=== PATIENT | male | born 1990 | race Two or more races ===

== ENCOUNTER 2017-06-26 12:52 | Inpatient (IN) | payer OTHER ==
[2017-06-26] MEDS ORDERED: SODIUM CHLORIDE 0.9% 1,000 ML IV ONE ×2 (13:53→15:54)
--- NOTE | 2017-06-26 13:56 | ED ---
Dizziness HPI - General Chief Complaint: Syncope Stated Complaint: Syncope Time Seen by Provider: 06/26/17 13:37 Source: patient, RN notes reviewed, old records reviewed Mode of arrival: ambulatory Limitations: no limitations - History of Present Illness Initial Comments: This patient is a 27-year-old female presents emergency department today chief complaint of syncopal episode. Patient reports that he is currently at [facility] facility. He was sitting on the edge of his bed and went to stand up and passed out follow-up. Patient reports that he quickly aroused. He denies any significant head injury, patient denies any chest pain, abdominal pain. He reports that he feels fine at this time. He states that happen to him in the past raise had a syncopal episodes from changing positions. Patient reports that he is currently withdrawing from benzodiazepines. He has been in the rehab facility for proximally 6 days. Patient is a smoker. Denies any cardiac history or medical history. Patient is in [facility] for history of crystal meth abuse, benzodiazepine abuse, heroin abuse, cocaine abuse. - Related Data Allergies Allergy/AdvReac Type Severity Reaction Status Date / Time codeine Allergy Rash/Hives Verified 06/26/17 13:33 Review of Systems ROS Statement: Those systems with pertinent positive or pertinent negative responses have been documented in the HPI. ROS Other: All systems not noted in ROS Statement are negative. Past Medical History Past Medical History: No Reported History History of Any Multi-Drug Resistant Organisms: None Reported Past Surgical History: No Surgical Hx Reported Past Psychological History: ADD/ADHD, Anxiety, Depression Smoking Status: Current every day smoker Past Alcohol Use History: None Reported Past Drug Use History: None Reported, Prescription Drug Abuse General Exam - General Exam Comments Initial Comments: This patient is a 27-year-old male. No acute distress. Alert and oriented 4. Limitations: no limitations General appearance: alert, in no apparent distress Head exam: Present: atraumatic, normocephalic, normal inspection Eye exam: Present: normal appearance, PERRL, EOMI. Absent: scleral icterus, conjunctival injection, periorbital swelling ENT exam: Present: normal exam, mucous membranes moist Neck exam: Present: normal inspection. Absent: tenderness, meningismus, lymphadenopathy Respiratory exam: Present: normal lung sounds bilaterally. Absent: respiratory distress, wheezes, rales, rhonchi, stridor Cardiovascular Exam: Present: regular rate, normal rhythm, normal heart sounds. Absent: systolic murmur, diastolic murmur, rubs, gallop, clicks GI/Abdominal exam: Present: soft, normal bowel sounds. Absent: distended, tenderness, guarding, rebound, rigid Extremities exam: Present: normal inspection, full ROM, normal capillary refill. Absent: tenderness, pedal edema, joint swelling, calf tenderness Back exam: Present: normal inspection Neurological exam: Present: alert, oriented X3, CN II-XII intact Psychiatric exam: Present: normal affect, normal mood Skin exam: Present: warm, dry, intact, normal color. Absent: rash Course Vital Signs 06/26/17 06/26/17 06/26/17 13:30 13:58 14:00 Temperature 97 F L Pulse Rate 67 Pulse Rate [ 69 Left Sitting Demolition Worker ] Pulse Rate [ Left Standing] Pulse Rate [ 67 69 Supine Demolition Worker] Respiratory 16 18 20 Rate Blood Pressure 142/73 Blood Pressure 127/60 123/61 [Left Arm] O2 Sat by Pulse 96 98 98 Oximetry 06/26/17 14:02 Temperature Pulse Rate Pulse Rate [ Left Sitting Demolition Worker ] Pulse Rate [ 77 Left Standing] Pulse Rate [ Supine Demolition Worker] Respiratory 20 Rate Blood Pressure Blood Pressure 120/65 [Left Arm] O2 Sat by Pulse 98 Oximetry - Reevaluation(s) Reevaluation #1: 06/26/17 16:16 Patient is a very anxious about his diagnosis. He is currently receiving a echocardiogram. Dr. Johnston will be coming down to see the patient in the emergency department. Medical Decision Making - Medical Decision Making Patient is a 27-year-old male presents emergency department for syncopal episode when getting up from sitting to standing today. He is currently at [facility] facility undergoing withdrawal for benzodiazepine, heroin, cocaine, crystal meth. Patient reports that after single episode he has no chest pain shortness of breath. Denies any significant medical history. He is a smoker. Initially patient was reluctant having any testing. I discussed doing an EKG. EKG did show some abnormalities with spiked T waves. He had a normal potassium. However was determined patient had an elevated troponin of 0.100. He denies any significant chest pain. He does report he has had severe anxiety now due to the elevated troponin is findings. I discussed with the patient that he needs to be admitted for further evaluation. Patient initially was reluctant but does agree to admission. I will give the patient Ativan. At this time I discussed case with Dr. Christopher Beaver. He stated to hold off with heparin at this time as patient does not have any chest pain. This could be all related to his withdrawal and drug use. Patient will be admitted with cardiology consult and Echo ordered. Also per patient's [facility] chart he has a history of hep C. There also has 2 open areas on his groin 1-2 cm each, and patient is on Bactrim. - Lab Data Result diagrams: 06/26/17 14:05 06/26/17 14:05 Lab Results 06/26/17 06/26/17 06/26/17 Range/Units 14: 14:05 14:05 WBC 8.2 (3.8-10.6) k/uL RBC 4.69 (4.30-5.90) m/uL Hgb 13.8 (13.0-17.5) gm/dL Hct 44.9 (39.0-53.0) % MCV 95.7 (80.0-100.0) fL MCH 29.4 (25.0-35.0) pg MCHC 30.7 L (31.0-37.0) g/dL RDW 13.5 (11.5-15.5) % Plt Count 212 (150-450) k/uL Neutrophils % 68 % Lymphocytes % 21 % Monocytes % 7 % Eosinophils % 2 % Basophils % 1 % Neutrophils # 5.6 (1.3-7.7) k/uL Lymphocytes # 1.7 (1.0-4.8) k/uL Monocytes # 0.6 (0-1.0) k/uL Eosinophils # 0.2 (0-0.7) k/uL Basophils # 0.0 (0-0.2) k/uL Sodium 139 (137-145) mmol/L Potassium 4.8 (3.5-5.1) mmol/L Chloride 100 (98-107) mmol/L Carbon Dioxide 31 H (22-30) mmol/L Anion Gap 8 mmol/L BUN 17 (9-20) mg/dL Creatinine 1.00 (0.66-1.25) mg/dL Est GFR (MDRD) Af Amer >60 (>60 ml/min/1.73 sqM) Est GFR (MDRD) Non-Af >60 (>60 ml/min/1.73 sqM) Glucose 79 (74-99) mg/dL Calcium 9.5 (8.4-10.2) mg/dL Magnesium (1.6-2.3) mg/dL Total Bilirubin 0.2 (0.2-1.3) mg/dL AST 42 (17-59) U/L ALT 69 (21-72) U/L Alkaline Phosphatase 62 (38-126) U/L Total Creatine Kinase (55-170) U/L CK-MB (CK-2) (0.0-2.4) ng/mL CK-MB (CK-2) Rel Index Troponin I 0.100 H* (0.000-0.034) ng/mL Total Protein 6.9 (6.3-8.2) g/dL Albumin 4.1 (3.5-5.0) g/dL 06/26/17 06/26/17 Range/Units 15:29 15:29 WBC (3.8-10.6) k/uL RBC (4.30-5.90) m/uL Hgb (13.0-17.5) gm/dL Hct (39.0-53.0) % MCV (80.0-100.0) fL MCH (25.0-35.0) pg MCHC (31.0-37.0) g/dL RDW (11.5-15.5) % Plt Count (150-450) k/uL Neutrophils % % Lymphocytes % % Monocytes % % Eosinophils % % Basophils % % Neutrophils # (1.3-7.7) k/uL Lymphocytes # (1.0-4.8) k/uL Monocytes # (0-1.0) k/uL Eosinophils # (0-0.7) k/uL Basophils # (0-0.2) k/uL Sodium (137-145) mmol/L Potassium (3.5-5.1) mmol/L Chloride (98-107) mmol/L Carbon Dioxide (22-30) mmol/L Anion Gap mmol/L BUN (9-20) mg/dL Creatinine (0.66-1.25) mg/dL Est GFR (MDRD) Af Amer (>60 ml/min/1.73 sqM) Est GFR (MDRD) Non-Af (>60 ml/min/1.73 sqM) Glucose (74-99) mg/dL Calcium (8.4-10.2) mg/dL Magnesium 1.9 (1.6-2.3) mg/dL Total Bilirubin (0.2-1.3) mg/dL AST (17-59) U/L ALT (21-72) U/L Alkaline Phosphatase (38-126) U/L Total Creatine Kinase 57 (55-170) U/L CK-MB (CK-2) 1.6 (0.0-2.4) ng/mL CK-MB (CK-2) Rel Index 2.8 Troponin I (0.000-0.034) ng/mL Total Protein (6.3-8.2) g/dL Albumin (3.5-5.0) g/dL 06/26/17 14:13 EKG performed at 1404 shows sinus rhythm normally QT noted. Ventricular 69 bpm. 82 ms. QRS ration 90 ms. QT QTc is 392/420 ms. No evidence of ST elevation or T-wave inversion. - Radiology Data Radiology results: report reviewed Correlating for bronchitis reactive airway disease. Follow-up is indicated. Disposition Clinical Impression: Elevated troponin, Syncope, Drug abuse Disposition: ADMITTED IP TO THIS [facility] Condition: Stable Referrals: Nonstaff,Physician [Primary Care Provider] - 1-2 days Time of Disposition: 15:28
[2017-06-26 14:32] LABS: Basophils % (A) 1 %; Eosinophils # (A) 0.2 k/uL (0-0.7); Eosinophils % (A) 2 %; HCT 44.9 % (39.0-53.0); HGB 13.8 gm/dL (13.0-17.5); Lymphocytes # (A) 1.7 k/uL (1.0-4.8); Lymphocytes % (A) 21 %; MCH 29.4 pg (25.0-35.0); MCHC 30.7 g/dL (31.0-37.0); MCV 95.7 fL (80.0-100.0); Mean Platelet Volume 7.6; Monocytes # (A) 0.6 k/uL (0-1.0); Monocytes % (A) 7 %; Neutrophils # (A) 5.6 k/uL (1.3-7.7); Neutrophils % (A) 68 %; Platelet Count 212 k/uL (150-450); RBC 4.69 m/uL (4.30-5.90); RDW 13.5 % (11.5-15.5); WBC 8.2 k/uL (3.8-10.6)
[2017-06-26 14:45] LABS: ALT 69 U/L (21-72); AST 42 U/L (17-59); Albumin 4.1 g/dL (3.5-5.0); Alkaline Phosphatase 62 U/L (38-126); Anion Gap 8 mmol/L; Blood Urea Nitrogen 17 mg/dL (9-20); Calcium 9.5 mg/dL (8.4-10.2); Carbon Dioxide 31 mmol/L (22-30); Chloride 100 mmol/L (98-107); Glucose 79 mg/dL (74-99); Potassium 4.8 mmol/L (3.5-5.1); Sodium 139 mmol/L (137-145); Total Bilirubin 0.2 mg/dL (0.2-1.3); Total Protein 6.9 g/dL (6.3-8.2)
[2017-06-26] MEDS ORDERED: LORazepam 2 MG/ML INJ IV STA (15:22)
[2017-06-26] MEDS ORDERED: NICOTINE 21MG/24HR PATCH TRANSDERM STA (15:23)
[2017-06-26] MEDS ORDERED: SODIUM CHLORIDE 0.45% 1,000 ML IV SCH (15:30)
--- NOTE | 2017-06-26 15:33 | XR ---
EXAMINATION TYPE: XR chest 2V DATE OF EXAM: 06/26/2017 COMPARISON: NONE HISTORY: Cough and congestion TECHNIQUE: Frontal and lateral views of the chest are obtained. FINDINGS: There is no focal air space opacity, pleural effusion, or pneumothorax seen. The cardiac silhouette size is within normal limits. The osseous structures are intact. Bronchial wall thickeni ng is present. IMPRESSION: Correlate for bronchitis, reactive airways disease, follow-up as indicated.
[2017-06-26] MEDS ORDERED: NITROGLYCERIN SL TABS 0.4 MG TAB SUBLINGUAL PRN (15:50)
[2017-06-26 15:53] LABS: Creatine Kinase MB 1.6 ng/mL (0.0-2.4)
[2017-06-26 16:58] LABS: INR 1.1 (<1.2); Partial Thromboplastin Time 24.1 sec (22.0-30.0); Prothrombin Time 10.5 sec (9.0-12.0)
[2017-06-26] MEDS: SODIUM CHLORIDE 0.9% 1,000 ML IV SCH (17:01)
[2017-06-26] MEDS: buPROPion SR 150 MG TABLET.ER PO SCH (20:39)
[2017-06-26] MEDS: cloNIDine HCL 0.1 MG TAB PO SCH (20:39)
[2017-06-26 21:07] LABS: Creatine Kinase MB 1.5 ng/mL (0.0-2.4)
[2017-06-26 21:20] LABS: Troponin I 0.116 ng/mL (0.000-0.034)
[2017-06-26 23:40] LABS: Appearance,Urine Clear (Clear); Bilirubin,Urine Negative (Negative); Blood,Urine Negative (Negative); Color,Urine Light Yellow; Glucose,Urine (UA) Negative (Negative); Ketones,Urine Negative (Negative); Leukocyte Esterase,Urine Negative (Negative); Nitrite,Urine Negative (Negative); Protein,Urine Negative (Negative); Urobilinogen,Urine <2.0 mg/dL (<2.0)
[2017-06-27 02:41] LABS: Cholesterol 155 mg/dL (<200); HDL Cholesterol 53 mg/dL (40-60); LDL Cholesterol,Calculated 66 mg/dL (0-99); Triglycerides 182 mg/dL (<150)
[2017-06-27 02:59] LABS: Creatine Kinase MB 1.3 ng/mL (0.0-2.4)
[2017-06-27 03:09] LABS: Troponin I 0.12 ng/mL (0.000-0.034)
[2017-06-27] MEDS: buPROPion SR 150 MG TABLET.ER PO SCH ×2 (06:40→20:01)
[2017-06-27] MEDS: NICOTINE 21MG/24HR PATCH TRANSDERM SCH (06:40)
[2017-06-27] MEDS: CITALOPRAM HYDROBROMIDE 20 MG TAB PO SCH (06:40)
[2017-06-27] MEDS: cloNIDine HCL 0.1 MG TAB PO SCH ×3 (06:40→20:01)
[2017-06-27] MEDS: SODIUM CHLORIDE 0.9% 1,000 ML IV SCH ×2 (06:54→11:50)
[2017-06-27] MEDS: ASPIRIN 325 MG TAB PO SCH (08:56)
--- NOTE | 2017-06-27 09:58 | P.CRDCN ---
History of Present Illness Consult date: 06/27/17 Requesting physician: Grabiel Johnston Consult reason: sycope, chest pain Chief complaint: Syncope and chest pain History of present illness: This is a pleasant 27-year-old gentleman with history of nicotine dependence, drug abuse, who is currently residing at [facility] for rehab. Patient states he's been using cocaine, methamphetamine. According to the patient, he had been lying down in bed, got up suddenly and the next thing he recalls is passing out onto the floor. He states that he noticed everything going black prior to passing out. He also states that he experienced a brief chest discomfort just prior to this. At the time of wakening he was alert and oriented 3, he did not lose control of bowel or bladder function. Patient is currently on Bactrim at home for an abscess, he's been taking this for the past 4-5 days. EKG performed on arrival here showed a normal sinus rhythm with peaked T waves. Subsequent EKG performed this morning shows normal sinus rhythm with peaked T waves. Chest x-ray suggests correlation for bronchitis, reactive airway disease. Blood pressure this morning 142/70, heart rate in the 60s, 96% on room air. CBC normal. Sodium 139, potassium 4.8, BUN 17, creatinine 1.0. Troponin 0.10, 0.11, 0.12. At the time of my examination this morning, he is currently chest pain-free. Just complaints of feeling extremely tired. Past Medical History Past Medical History: No Reported History Additional Past Medical History / Comment(s): hep c(no tx yet), add, 2 open areas/groin on abx History of Any Multi-Drug Resistant Organisms: None Reported Past Surgical History: No Surgical Hx Reported Additional Past Surgical History / Comment(s): pt stated no sx Past Anesthesia/Blood Transfusion Reactions: No Reported Reaction Smoking Status: Current every day smoker - Past Family History Father Family Medical History: No Reported History Mother Additional Family Medical History / Comment(s): from brain anuerysm Medications and Allergies Home Medications Medication Instructions Recorded Confirmed Type Buprenorphine HCl/Naloxone HCl 1 tab SL BID 06/26/17 06/26/17 History [Zubsolv 5.7-1.4 mg Tablet Sl] Citalopram Hydrobromide [CeleXA] 40 mg PO DAILY 06/26/17 06/26/17 History Nicotine 21Mg/24Hr Patch [Habitrol 1 patch TRANSDERM DAILY 06/26/17 06/26/17 History 21Mg/24Hr Patch] Sulfamethox-Tmp 800-160Mg [Bactrim 1 tab PO Q12HR 06/26/17 06/26/17 History DS 800-160 mg] buPROPion HCL [Wellbutrin SR] 150 mg PO BID 06/26/17 06/26/17 History Allergies Allergy/AdvReac Type Severity Reaction Status Date / Time codeine Allergy Rash/Hives Verified 06/26/17 16:48 Physical Exam Vitals: Vital Signs Temp Pulse Pulse Pulse Pulse Pulse Resp 06/27/17 08:00 96.9 F L 59 L 06/27/17 04:00 97.2 F L 65 18 06/27/17 00:00 71 18 06/26/17 20:00 97.3 F L 72 18 06/26/17 17:03 96.1 F L 80 18 06/26/17 16:53 97.0 F L 71 16 06/26/17 16:00 80 16 06/26/17 14:02 77 20 06/26/17 14:00 69 69 20 06/26/17 13:58 67 18 06/26/17 13:30 97 F L 67 16 BP BP Pulse Ox 06/27/17 08:00 96/50 97 06/27/17 04:00 111/57 97 06/27/17 00:00 110/55 97 06/26/17 20:00 120/72 98 06/26/17 17:03 118/58 06/26/17 16:53 124/71 100 06/26/17 16:00 118/69 99 06/26/17 14:02 120/65 98 06/26/17 14:00 123/61 98 06/26/17 13:58 127/60 98 06/26/17 13:30 142/73 96 Intake and Output 06/26/17 06/27/17 06/27/17 22:59 06:59 14:59 Intake Total 800 Balance 800 Intake: Oral 800 Other: # Voids 2 Weight 95.8 kg PHYSICAL EXAMINATION: HEENT: Head is atraumatic, normocephalic. Pupils equal, round. Neck is supple. There is no elevated jugular venous pressure. HEART EXAMINATION: Heart S1, S2 normal. No murmur or gallop heard. CHEST EXAMINATION: Lungs are clear to auscultation and precussion. No chest wall tenderness is noted on palpation or with deep breathing. ABDOMEN: Soft, nontender. Bowel sounds are heard. No organomegaly noted. EXTREMITIES: 2+ peripheral pulses with no evidence of peripheral edema and no calf tenderness noted. NEUROLOGIC patient is awake, alert and oriented -3. . Results 06/26/17 14:05 06/26/17 14:05 Cardiac Enzymes 06/26/17 06/26/17 06/26/17 Range/Units 14:05 14:05 15:29 AST 42 (17-59) U/L CK-MB (CK-2) 1.6 (0.0-2.4) ng/mL Troponin I 0.100 H* (0.000-0.034) ng/mL 06/26/17 06/27/17 Range/Units 20:28 02:07 AST (17-59) U/L CK-MB (CK-2) 1.5 1.3 (0.0-2.4) ng/mL Troponin I 0.116 H* 0.120 H* (0.000-0.034) ng/mL Coagulation 06/26/17 Range/Units 16:25 PT 10.5 (9.0-12.0) sec APTT 24.1 (22.0-30.0) sec Lipids 06/27/17 Range/Units 02:07 Triglycerides 182 H (<150) mg/dL Cholesterol 155 (<200) mg/dL HDL Cholesterol 53 (40-60) mg/dL CBC 06/26/17 Range/Units 14:05 WBC 8.2 (3.8-10.6) k/uL RBC 4.69 (4.30-5.90) m/uL Hgb 13.8 (13.0-17.5) gm/dL Hct 44.9 (39.0-53.0) % Plt Count 212 (150-450) k/uL Comprehensive Metabolic Panel 06/26/17 Range/Units 14:05 Sodium 139 (137-145) mmol/L Potassium 4.8 (3.5-5.1) mmol/L Chloride 100 (98-107) mmol/L Carbon Dioxide 31 H (22-30) mmol/L BUN 17 (9-20) mg/dL Creatinine 1.00 (0.66-1.25) mg/dL Glucose 79 (74-99) mg/dL Calcium 9.5 (8.4-10.2) mg/dL AST 42 (17-59) U/L ALT 69 (21-72) U/L Alkaline Phosphatase 62 (38-126) U/L Total Protein 6.9 (6.3-8.2) g/dL Albumin 4.1 (3.5-5.0) g/dL Current Medications Generic Name Dose Route Start Last Admin Trade Name Freq PRN Reason Stop Dose Admin Aspirin 325 mg 06/27/17 09:00 06/27/17 08:56 Aspirin PO 325 mg DAILY JARET Administration Bupropion HCl 150 mg 06/26/17 21:00 06/27/17 06:40 Wellbutrin Sr PO 150 mg BID JARET Administration Citalopram Hydrobromide 40 mg 06/27/17 09:00 06/27/17 06:40 Celexa PO 40 mg DAILY JARET Administration Clonidine 0.3 mg 06/26/17 22:00 06/27/17 06:40 Catapres PO 0.3 mg TID JARET Administration Sodium Chloride 1,000 mls @ 100 mls/hr 06/26/17 16:00 06/27/17 06:54 Saline 0.9% IV Not Given .Q10H [facility] Nicotine 1 patch 06/27/17 09:00 06/27/17 06:40 Habitrol 21mg/24hr Patch TRANSDERM 1 patch DAILY JARET Administration Nitroglycerin 0.4 mg 06/26/17 15:50 Nitrostat SUBLINGUAL Q5M PRN Chest Pain Intake and Output 06/26/17 06/27/17 06/27/17 22:59 06:59 14:59 Intake Total 800 Balance 800 Intake: Oral 800 Other: # Voids 2 Weight 95.8 kg 06/26/17 14:05 06/26/17 14:05 EKG Interpretations (text) EKG shows a normal sinus rhythm with peaked T waves Assessment and Plan Plan: Assessment and plan #1 syncope, rule out cardiac causes. EKG shows normal sinus rhythm with peaked T waves. Blood pressure 118/60, heart rate in the 80s. No tachycardia or bradycardia arrhythmias noted. #2 atypical chest pain, troponins 0.1, 0.11, 0.12. EKG shows normal sinus rhythm with peaked T waves, no acute changes noted. #3 positive cocaine and methamphetamine use currently in rehab #4 patient is on Bactrim as an outpatient for an access, he's been taking it for 4-5 days #5 nicotine dependence Plan We will obtain an echocardiogram with Doppler study. We will also request a d- dimer, being that the patient's troponins are abnormal and he had a syncopal episode. Rule out the possibility of pulmonary embolism. Check orthostatic blood pressure and heart rate. We will also schedule patient for regular stress test today. Further recommendations to follow. DNP note has been reviewed, I agree with a documented findings and plan of care. Patient was seen and examined.
--- NOTE | 2017-06-27 11:27 | ECHOF ---
Referral Reason:Elevated troponin MEASUREMENTS -------- HEIGHT: 180.3 cm WEIGHT: 91.2 kg BP: 120/65 RVIDd: 2.9 cm (< 3.3) IVSd: 1.3 cm (0.6 - 1.1) LVIDd: 4.9 cm (3.9 - 5.3) LVPWd: 1.3 cm (0.6 - 1.1) IVSs: 1.7 cm LVIDs: 3.4 cm LVPWs: 1.7 cm LAESV Index (A-L): 26.55 ml/m Ao Diam: 3.0 cm (2.0 - 3.7) AV Cusp: 2.2 cm (1.5 - 2.6) LA Diam: 3.1 cm (2.7 - 3.8) EPSS: 0.8 cm MV E Duglas: 0.86 m/s MV DecT: 293 ms MV A Duglas: 0.58 m/s MV E/A Ratio: 1.48 RAP: 5.00 mmHg RVSP: 21.05 mmHg MV EF SLOPE: 114.50 mm/s (70 - 150) MV EXCURSION: 1.90 cm (> 18.000) FINDINGS -------- Sinus rhythm. This was a technically good study. The left ventricular size is normal. There is mild concentric left ventricular hypertrophy. Overa ll left ventricular systolic function is low-normal with, an EF between 50 - 55 %. The right ventricle is normal in size and function. Normal LA size by volume 22+/-6 ml/m2. The right atrium is normal in size. The aortic valve is trileaflet, and appears structurally normal. No aortic stenosis or regurgitation. The mitral valve is normal. There is trace mitral regurgitation. The tricuspid valve appears structurally normal. Trace tricuspid regurgitation present. Right killian tricular systolic pressure is normal at < 35 mmHg. There is no evidence of pulmonary hypertension. There is no pulmonic regurgitation present. The aortic root size is normal. Normal inferior vena cava with normal inspiratory collapse consistent with estimated right atrial pre ssure of 5 mmHg. There is no pericardial effusion. CONCLUSIONS -------- 1. Sinus rhythm. 2. This was a technically good study. 3. The left ventricular size is normal. 4. There is mild concentric left ventricular hypertrophy. 5. Overall left ventricular systolic function is low-normal with, an EF between 50 - 55 %. 6. Normal LA size by volume 22+/-6 ml/m2. 7. The aortic valve is trileaflet, and appears structurally normal. No aortic stenosis or regurgitati on. 8. There is trace mitral regurgitation. 9. Trace tricuspid regurgitation present. 10. Right ventricular systolic pressure is normal at < 35 mmHg. 11. There is no pulmonic regurgitation present. 12. The aortic root size is normal. 13. There is no pericardial effusion. SUPERVISOR GROUNDS: Davion Schmitt RDCS
[2017-06-27] MEDS: clonazePAM 1 MG TAB PO SCH ×3 (13:57→20:01)
--- NOTE | 2017-06-27 15:45 | HP ---
HISTORY AND PHYSICAL CHIEF COMPLAINT: Syncopal episode, substance abuse, and elevated troponin. HISTORY OF PRESENT ILLNESS: This gentleman was sent in from [place] after he had a syncopal event. He does not remember having any aura, incontinence, seizure activity, chest pain, palpitations, neurologic problems, etc. He is on Suboxone and does have a history of IV drug abuse. His troponin is up slightly. REVIEW OF SYSTEMS: He denies any lethargy, diplopia, focal neurologic deficits, cough, hemoptysis, chest pain, palpitations, diaphoresis, abdominal pain, vomiting, diarrhea, melena, hematochezia, jaundice, liver disease, renal disease, dysuria, diabetes, etc. Past medical history, family history, personal and social histories are unremarkable and noncontributory otherwise. PHYSICAL EXAMINATION: Blood pressure 110/55 with a pulse of 82, respirations of 15. He is afebrile. In general, appeared well developed, well nourished, in no acute distress. Skin color is normal. Skin is warm, dry. Lymph nodes not enlarged. Head, ears, eyes, nose, mouth and throat were normal. Neck veins not distended. Thyroid is enlarged. Chest is clear. Cardiac exam is normal. No murmurs or rubs. The abdomen is soft and nontender and there are no masses or visceromegaly. Extremities normal. Neurologically is intact. IMPRESSION: 1. Syncope. 2. Elevated troponin. 3. History of drug abuse. PLAN: 1. Bed rest. 2. IV fluids. 3. Serial EKGs and enzymes. 4. Cardiology consult. MMODL / IJN: [id number] /
--- NOTE | 2017-06-27 15:45 | PN ---
PROGRESS NOTE DATE OF SERVICE: 06/27/2017. CHIEF COMPLAINT: Syncope. HISTORY OF PRESENT ILLNESS: This gentleman is stable. He has had no neurologic changes or problems. He has had no arrhythmias, his palpitations, syncope, etc. He was more lethargic than he was last night, but remains to be drowsy. PHYSICAL EXAM: Chest is clear. Cardiac exam is normal. Abdomen is soft, nontender. IMPRESSION: 1. Syncopal event. 2. Elevated troponin. 3. History of substance abuse. 4. Lethargy. PLAN: Continue to follow cardiac workup and try to control his withdrawals. Suboxone is not available in this hospital. MMODL / IJN: [id number] /
[2017-06-27] MEDS ORDERED: ONDANSETRON 4 MG/2 ML VIAL ONE (16:56)
[2017-06-27] MEDS ORDERED: ONDANSETRON 4 MG/2 ML VIAL IVP PRN (17:03)
[2017-06-27] MEDS ORDERED: SODIUM CHLORIDE 0.9% 1,000 ML with MVI, ADULT NO.4 WITH VIT K 10 ML, THIAMINE 100 MG, F... IV ONE ×4 (17:30)
[2017-06-27] MEDS: NALOXONE HCL SL SCH (19:52)
[2017-06-27] MEDS: BUPRENORPHINE HCL SL SCH (19:52)
[2017-06-28 03:17] VITALS: RESP 16
[2017-06-28] MEDS: SODIUM CHLORIDE 0.9% 1,000 ML IV SCH ×2 (05:23→08:49)
[2017-06-28] MEDS: ASPIRIN 325 MG TAB PO SCH (08:48)
[2017-06-28] MEDS: NICOTINE 21MG/24HR PATCH TRANSDERM SCH (08:48)
[2017-06-28] MEDS: clonazePAM 1 MG TAB PO SCH ×2 (08:48→15:01)
[2017-06-28] MEDS: cloNIDine HCL 0.1 MG TAB PO SCH ×2 (08:48→15:01)
[2017-06-28] MEDS: CITALOPRAM HYDROBROMIDE 20 MG TAB PO SCH (08:48)
[2017-06-28] MEDS: NALOXONE HCL SL SCH (08:49)
[2017-06-28] MEDS: buPROPion SR 150 MG TABLET.ER PO SCH (08:49)
[2017-06-28] MEDS: BUPRENORPHINE HCL SL SCH (08:49)
[2017-06-28 08:54] VITALS: TEMP 96.4
[2017-06-28 12:45] VITALS: BP 114/59; PULSE 85
--- NOTE | 2017-06-28 16:30 | DS ---
DISCHARGE SUMMARY CHIEF COMPLAINT: Syncope. HISTORY OF PRESENT ILLNESS AND PHYSICAL EXAM: Details of this man's history and physical can be found in the initial workup. LABORATORY STUDIES: While he was in a hospital he had laboratory studies details which can be found in the laboratory section of his chart. COURSE IN HOSPITAL: After admission he was placed on bedrest, started on intravenous fluids and had no further neurologic events for syncope. He did have some difficulty with early withdrawal symptoms. He was doing well the 16 and was felt he could be discharged. He will to [place] or home. FINAL DIAGNOSES: 1. Syncopal episode, etiology unknown. 2. Drug abuse. 3. Elevated troponin. OPERATIONS: None. CONSULTATIONS: Cardiology. He is improved. MMODL / IJN: [id number] /
== END 2017-06-28 15:20 | disposition still patient (30) | DRG 312 ==
LOC: EC 12:52 → 6SEL 16:40
PROVIDERS: ADMIT Family Medicine; ATTEND Family Medicine
DX: R55 Syncope and collapse (principal); B19.20 Unspecified viral hepatitis C without hepatic coma; F11.10 Opioid abuse, uncomplicated; F13.10 Sedative, hypnotic or anxiolytic abuse, uncomplicated; F14.10 Cocaine abuse, uncomplicated; F15.10 Other stimulant abuse, uncomplicated; F32.9 Major depressive disorder, single episode, unspecified; F41.9 Anxiety disorder, unspecified; F17.200 Nicotine dependence, unspecified, uncomplicated; R74.8 Abnormal levels of other serum enzymes; Z79.899 Other long term (current) drug therapy; Z88.5 Allergy status to narcotic agent
CPT/HCPCS: 36415; 71046; 80053; 80061; 81003; 82550; 82553; 83735; 84484; 85025; 85379; 85610; 85730; 93005; 93306; 96361; 96374; 99285

== ENCOUNTER 2017-07-03 04:26 | Observation (INO) | payer OTHER ==
[2017-07-03] MEDS ORDERED: LORazepam 2 MG/ML INJ IV STA ×2 (04:37→05:52)
[2017-07-03] MEDS ORDERED: NITROGLYCERIN SL TABS 0.4 MG TAB SUBLINGUAL PRN (04:51)
[2017-07-03] MEDS ORDERED: ASPIRIN 81 MG PO STA (04:51)
--- NOTE | 2017-07-03 04:51 | ED ---
General Adult HPI - General Chief complaint: Chest Pain Stated complaint: chest pain Time Seen by Provider: 07/03/17 04:29 Source: patient, EMS, RN notes reviewed, old records reviewed Mode of arrival: EMS Limitations: no limitations - History of Present Illness Initial comments: This is a 27-year-old male to the ER for evaluation of chest pain. Patient does have anterior chest pain, anxiety. Patient's history of drug abuse. Patient states she was recently hospitalized for chest pain syncope, elevated troponin. Patient was most of heart catheterization, patient signed out AMA prior to procedure - Related Data Home Medications Medication Instructions Recorded Confirmed Buprenorphine HCl/Naloxone HCl 1 tab SL BID 06/26/17 07/03/17 [Zubsolv 5.7-1.4 mg Tablet Sl] Citalopram Hydrobromide [CeleXA] 40 mg PO DAILY 06/26/17 07/03/17 Nicotine 21Mg/24Hr Patch [Habitrol] 1 patch TRANSDERM DAILY 06/26/17 07/03/17 Sulfamethox-Tmp 800-160Mg [Bactrim 1 tab PO Q12HR 06/26/17 07/03/17 DS 800-160 mg] buPROPion HCL [Wellbutrin SR] 150 mg PO BID 06/26/17 07/03/17 Allergies Allergy/AdvReac Type Severity Reaction Status Date / Time codeine Allergy Rash/Hives Verified 06/26/17 16:48 Review of Systems ROS Statement: Those systems with pertinent positive or pertinent negative responses have been documented in the HPI. ROS Other: All systems not noted in ROS Statement are negative. Past Medical History Past Medical History: Syncope Additional Past Medical History / Comment(s): hep c(no tx yet), add, 2 open areas/groin on abx History of Any Multi-Drug Resistant Organisms: None Reported Past Surgical History: No Surgical Hx Reported Additional Past Surgical History / Comment(s): pt stated no sx Past Anesthesia/Blood Transfusion Reactions: No Reported Reaction Past Psychological History: ADD/ADHD, Anxiety, Depression Smoking Status: Current every day smoker - Past Family History Father Family Medical History: No Reported History Mother Additional Family Medical History / Comment(s): from brain anuerysm General Exam Limitations: no limitations General appearance: alert, in no apparent distress, anxious Head exam: Present: atraumatic, normocephalic, normal inspection Eye exam: Present: normal appearance, PERRL, EOMI. Absent: scleral icterus, conjunctival injection, periorbital swelling ENT exam: Present: normal exam, mucous membranes moist Neck exam: Present: normal inspection. Absent: tenderness, meningismus, lymphadenopathy Respiratory exam: Present: normal lung sounds bilaterally. Absent: respiratory distress, wheezes, rales, rhonchi, stridor Cardiovascular Exam: Present: regular rate, normal rhythm, normal heart sounds. Absent: systolic murmur, diastolic murmur, rubs, gallop, clicks GI/Abdominal exam: Present: soft, normal bowel sounds. Absent: distended, tenderness, guarding, rebound, rigid Extremities exam: Present: normal inspection, full ROM, normal capillary refill. Absent: tenderness, pedal edema, joint swelling, calf tenderness Back exam: Present: normal inspection Neurological exam: Present: alert, oriented X3, CN II-XII intact Psychiatric exam: Present: normal affect, normal mood Skin exam: Present: warm, dry, intact, normal color. Absent: rash Course Vital Signs 07/03/17 04:27 Temperature 97.9 F Pulse Rate 71 Respiratory 20 Rate Blood Pressure 137/77 O2 Sat by Pulse 97 Oximetry - Reevaluation(s) Reevaluation #1: 07/03/17 04:50 Medical record and prior hospitalizations reviewed EKG Findings - EKG Comments: EKG Findings:: EKG shows normal sinus rhythm rate of 69, ND 164, QRS 90, QTc 407 Medical Decision Making - Medical Decision Making 27 male the ER with recurrent chest pain, patient Center AMA prior heart catheterization earlier this week. Patient be admitted for cardiac observation Disposition Clinical Impression: Atypical chest pain, Chest pain, Elevated troponin Disposition: ADMITTED IP TO THIS HOSP Condition: Undetermined Referrals: Nonstaff,Physician [Primary Care Provider] - 1-2 days
[2017-07-03 04:52] LABS: Basophils # (A) 0.1 k/uL (0-0.2); Basophils % (A) 1 %; Eosinophils # (A) 0.1 k/uL (0-0.7); Eosinophils % (A) 2 %; HCT 42.4 % (39.0-53.0); HGB 13.6 gm/dL (13.0-17.5); Lymphocytes # (A) 1.9 k/uL (1.0-4.8); Lymphocytes % (A) 30 %; MCH 29.6 pg (25.0-35.0); MCHC 32.1 g/dL (31.0-37.0); MCV 92.2 fL (80.0-100.0); Mean Platelet Volume 7.3; Monocytes # (A) 0.5 k/uL (0-1.0); Monocytes % (A) 7 %; Neutrophils # (A) 3.7 k/uL (1.3-7.7); Neutrophils % (A) 57 %; Platelet Count 205 k/uL (150-450); RDW 13.5 % (11.5-15.5); WBC 6.4 k/uL (3.8-10.6)
[2017-07-03 04:54] LABS: INR 1.2 (<1.2); Partial Thromboplastin Time 23.9 sec (22.0-30.0); Prothrombin Time 11.4 sec (9.0-12.0)
[2017-07-03 05:11] LABS: ALT 47 U/L (21-72); AST 33 U/L (17-59); Albumin 4.2 g/dL (3.5-5.0); Alkaline Phosphatase 62 U/L (38-126); Anion Gap 9 mmol/L; Blood Urea Nitrogen 19 mg/dL (9-20); Calcium 9.8 mg/dL (8.4-10.2); Carbon Dioxide 26 mmol/L (22-30); Chloride 102 mmol/L (98-107); Glucose 81 mg/dL (74-99); Lipase 78 U/L (23-300); Magnesium 1.9 mg/dL (1.6-2.3); Potassium 4.2 mmol/L (3.5-5.1); Sodium 137 mmol/L (137-145); Total Bilirubin 0.4 mg/dL (0.2-1.3); Total Protein 7.1 g/dL (6.3-8.2)
--- NOTE | 2017-07-03 05:15 | XR ---
EXAM: XR Chest, 2 Views CLINICAL HISTORY: ITS.REASON XR Reason: Chest Pain TECHNIQUE: Frontal and lateral views of the chest. COMPARISON: 06/26/2017 FINDINGS: Lungs: Unremarkable. No consolidation. Pleural space: Unremarkable. No pneumothorax. Heart: Unremarkable. No cardiomegaly. Mediastinum: Unremarkable. Bones/joints: Unremarkable. IMPRESSION: No segmental airspace disease or acute cardiopulmonary process identified.
[2017-07-03 05:40] LABS: Creatine Kinase MB 1.1 ng/mL (0.0-2.4)
[2017-07-03 05:51] LABS: Troponin I 0.092 ng/mL (0.000-0.034)
[2017-07-03] MEDS ORDERED: METOPROLOL TARTRATE 25 MG TAB PO SCH (09:00)
[2017-07-03 11:55] LABS: Troponin I 0.085 ng/mL (0.000-0.034)
--- NOTE | 2017-07-03 12:25 | P.CRDCN ---
History of Present Illness Consult date: 07/03/17 Requesting physician: Jean Salamanca Reason for Consult (text): chest pain Chief complaint: chest pain History of present illness: This is a pleasant 27-year-old gentleman with history of nicotine dependence, drug abuse who is currently residing at [facility] for rehab. She admits to cocaine and methamphetamine use. Patient was recently admitted with chest discomfort with troponins of 0.10, 0.11 and 0.12 and a negative d- dimer. He was recommended to undergo regular stress testing however refused and was subsequently discharged back to [facility]. He presented again with complaints of ongoing chest discomfort which started Saturday night and have improved fairly constant only changing in severity. Patient complains of stabbing sharp discomfort in a very localized area on the left sternal border. Complains of worsening upon palpation, no increase in pain with deep breathing. Chest x-ray shows no segmental airspace disease or acute cardiopulmonary process identified. EKG shows normal sinus rhythm. Laboratory values were reviewed and showed normal CBC, electrolytes, liver function tests and renal function. Troponin remains elevated at 0.092 and 0.085. Upon examination, patient is sitting up in bed eating his lunch. Continues to complain of some chest discomfort of varying intensity, tender to palpation. Past Medical History Past Medical History: Syncope Additional Past Medical History / Comment(s): Pt recently admitted to [facility] on with syncope, chest pain and elevated troponin-pt states he was to have a catheterization but he left AMA. Other hx: Hepatitis C-not treated, recent groin sores that are healed-pt has 1 more antibiotic to complete. History of Any Multi-Drug Resistant Organisms: None Reported Past Surgical History: No Surgical Hx Reported Additional Past Surgical History / Comment(s): pt stated no sx Past Anesthesia/Blood Transfusion Reactions: No Reported Reaction Smoking Status: Current every day smoker - Past Family History Father Family Medical History: No Reported History Mother Additional Family Medical History / Comment(s): from brain anuerysm Medications and Allergies Home Medications Medication Instructions Recorded Confirmed Type Citalopram Hydrobromide [CeleXA] 40 mg PO DAILY@0600 06/26/17 07/03/17 History Nicotine 21Mg/24Hr Patch [Habitrol] 1 patch TRANSDERM DAILY 06/26/17 07/03/17 History Sulfamethox-Tmp 800-160Mg [Bactrim 1 tab PO Q12HR 06/26/17 07/03/17 History DS 800-160 mg] buPROPion HCL [Wellbutrin SR] 150 mg PO BID 06/26/17 07/03/17 History Acetaminophen [Tylenol 8 Hour] 650 mg PO Q4H PRN 07/03/17 07/03/17 History Calcium/Magnesium 1000mg/500mg 1 tab PO TID PRN 07/03/17 07/03/17 History Chlorpheniramine Maleate 4 mg PO Q4H PRN MDD 4 DOSES 07/03/17 07/03/17 History [Chlor-Trimeton] Hyoscyamine Sulfate [Levsin-Sl] 0.125 mg SUBLINGUAL QID PRN 07/03/17 07/03/17 History Ibuprofen [Motrin] 600 mg PO Q6H PRN 07/03/17 07/03/17 History Loperamide [Imodium] 2 mg PO QID PRN 07/03/17 07/03/17 History Ondansetron HCl [Zofran] 8 mg PO Q6H PRN 07/03/17 07/03/17 History Trimethobenzamide HCl [Tigan] 300 mg PO Q6H PRN 07/03/17 07/03/17 History busPIRone HCl [Buspar] 5 mg PO TID 07/03/17 07/03/17 History traZODone HCL 50 - 150 mg PO HS 07/03/17 07/03/17 History Allergies Allergy/AdvReac Type Severity Reaction Status Date / Time codeine Allergy Rash/Hives Verified 07/03/17 07:41 Physical Exam Vitals: Vital Signs Temp Pulse Resp BP Pulse Ox 07/03/17 11:26 98.2 F 82 18 125/61 97 07/03/17 08:30 70 18 140/88 95 07/03/17 05:49 73 20 126/58 99 07/03/17 04:27 97.9 F 71 20 137/77 97 Intake and Output 07/02/17 07/03/17 07/03/17 22:59 06:59 14:59 Other: Weight 95.254 kg PHYSICAL EXAMINATION: HEENT: Head is atraumatic, normocephalic. Pupils equal, round. Neck is supple. There is no elevated jugular venous pressure. HEART EXAMINATION: Heart sounds regular, S1 and S2 normal. No murmur or gallop heard. CHEST EXAMINATION: Lungs are clear to auscultation and precussion. Tenderness to palpation noted at left sternal border. ABDOMEN: Soft, nontender. Bowel sounds are heard. No organomegaly noted. EXTREMITIES: 2+ peripheral pulses with no evidence of peripheral edema and no calf tenderness noted. NEUROLOGIC patient is awake, alert and oriented x3. . Results 07/03/17 04:29 07/03/17 04:29 Cardiac Enzymes 07/03/17 07/03/17 07/03/17 Range/Units 04:29 04:29 11:00 AST 33 (17-59) U/L CK-MB (CK-2) 1.1 1.0 (0.0-2.4) ng/mL Troponin I 0.092 H* 0.085 H* (0.000-0.034) ng/mL Coagulation 07/03/17 Range/Units 04:29 PT 11.4 (9.0-12.0) sec APTT 23.9 (22.0-30.0) sec CBC 07/03/17 Range/Units 04:29 WBC 6.4 (3.8-10.6) k/uL RBC 4.60 (4.30-5.90) m/uL Hgb 13.6 (13.0-17.5) gm/dL Hct 42.4 (39.0-53.0) % Plt Count 205 (150-450) k/uL Comprehensive Metabolic Panel 07/03/17 Range/Units 04:29 Sodium 137 (137-145) mmol/L Potassium 4.2 (3.5-5.1) mmol/L Chloride 102 (98-107) mmol/L Carbon Dioxide 26 (22-30) mmol/L BUN 19 (9-20) mg/dL Creatinine 1.00 (0.66-1.25) mg/dL Glucose 81 (74-99) mg/dL Calcium 9.8 (8.4-10.2) mg/dL AST 33 (17-59) U/L ALT 47 (21-72) U/L Alkaline Phosphatase 62 (38-126) U/L Total Protein 7.1 (6.3-8.2) g/dL Albumin 4.2 (3.5-5.0) g/dL Current Medications Generic Name Dose Route Start Last Admin Trade Name Freq PRN Reason Stop Dose Admin Aspirin 325 mg 07/04/17 09:00 Aspirin PO DAILY JARET Metoprolol Tartrate 25 mg 07/03/17 09:00 07/03/17 10:04 Lopressor PO 25 mg BID JARET Administration Nitroglycerin 0.4 mg 07/03/17 04:51 Nitrostat SUBLINGUAL Q5M PRN Chest Pain Intake and Output 07/02/17 07/03/17 07/03/17 22:59 06:59 14:59 Other: Weight 95.254 kg 07/03/17 04:29 07/03/17 04:29 EKG Interpretations (text) Sinus rhythm Assessment and Plan Assessment: #1 atypical chest pain #2 elevated troponin of indeterminate significance, improved since last week #3 drug abuse Plan: From cardiology perspective, we will scheduled the patient for stress echo tomorrow to rule out underlying ischemia. Further recommendations to follow. MEDICAL MANAGEMENT TRAINER note has been reviewed, I agree with a documented findings and plan of care. Patient was seen and examined.
[2017-07-03] MEDS ORDERED: TRIMETHOBENZAMIDE 300 MG CAP PO PRN (13:05)
[2017-07-03] MEDS ORDERED: IBUPROFEN 600 MG TAB PO PRN (13:05)
[2017-07-03] MEDS ORDERED: ACETAMINOPHEN TAB 325 MG TAB PO PRN (13:05)
--- NOTE | 2017-07-03 13:18 | P.HPIM ---
History of Present Illness 27-year-old gentleman with history of nicotine dependence, drug abuse who is currently residing at [facility] for rehab. She admits to cocaine and methamphetamine use. Patient was recently admitted with chest discomfort with troponins of 0.10, 0.11 and 0.12 and a negative d-dimer. He was recommended to undergo regular stress testing however refused and was subsequently discharged back to [facility]. He presented again with complaints of ongoing chest discomfort which started Saturday night and have improved fairly constant only changing in severity. Patient complains of stabbing sharp discomfort in a very localized area on the left sternal border, lasted for a few minutes not associated with food although reproducible upon palpation patient denied any recent use of cocaine or amphetamines. Complains of worsening upon palpation, no increase in pain with deep breathing. Chest x-ray shows no segmental airspace disease or acute cardiopulmonary process identified. EKG shows normal sinus rhythm. Laboratory values were reviewed and showed normal CBC, electrolytes, liver function tests and renal function. Troponin remains elevated at 0.092 and 0.085. Upon examination, patient is sitting up in bed eating his lunch. Continues to complain of some chest discomfort of varying intensity, tender to palpation. He does have history of IV drug use patient had a a small abscess that was treated with and completed antibiotic therapy close to the right internal area. 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 Review of Systems REVIEW OF SYSTEMS: CONSTITUTIONAL: No fever, no malaise, no fatigue. HEENT: No recent visual problems or hearing problems. Denied any sore throat. CARDIOVASCULAR: No orthopnea, PND, no palpitations, no syncope. PULMONARY: No shortness of breath, no cough, no hemoptysis. GASTROINTESTINAL: No diarrhea, no nausea, no vomiting, no abdominal pain. Normoactive bowel sounds. NEUROLOGICAL: No headaches, no weakness, no numbness. HEMATOLOGICAL: Denies any bleeding or petechiae. GENITOURINARY: Denies any burning micturition, frequency, or urgency. MUSCULOSKELETAL/RHEUMATOLOGICAL: Denies any joint pain, swelling, or any muscle pain. ENDOCRINE: Denies any polyuria or polydipsia. The rest of the 14-point review of systems is negative. Past Medical History Past Medical History: Syncope Additional Past Medical History / Comment(s): Pt recently admitted to [facility] on with syncope, chest pain and elevated troponin-pt states he was to have a catheterization but he left AMA. Other hx: Hepatitis C-not treated, recent groin sores that are healed-pt has 1 more antibiotic to complete. History of Any Multi-Drug Resistant Organisms: None Reported Past Surgical History: No Surgical Hx Reported Additional Past Surgical History / Comment(s): pt stated no sx Past Anesthesia/Blood Transfusion Reactions: No Reported Reaction Smoking Status: Current every day smoker - Past Family History Father Family Medical History: No Reported History Mother Additional Family Medical History / Comment(s): from brain anuerysm Medications and Allergies Home Medications Medication Instructions Recorded Confirmed Type Citalopram Hydrobromide [CeleXA] 40 mg PO DAILY@0600 06/26/17 07/03/17 History Nicotine 21Mg/24Hr Patch [Habitrol] 1 patch TRANSDERM DAILY 06/26/17 07/03/17 History Sulfamethox-Tmp 800-160Mg [Bactrim 1 tab PO Q12HR 06/26/17 07/03/17 History DS 800-160 mg] buPROPion HCL [Wellbutrin SR] 150 mg PO BID 06/26/17 07/03/17 History Acetaminophen [Tylenol 8 Hour] 650 mg PO Q4H PRN 07/03/17 07/03/17 History Calcium/Magnesium 1000mg/500mg 1 tab PO TID PRN 07/03/17 07/03/17 History Chlorpheniramine Maleate 4 mg PO Q4H PRN MDD 4 DOSES 07/03/17 07/03/17 History [Chlor-Trimeton] Hyoscyamine Sulfate [Levsin-Sl] 0.125 mg SUBLINGUAL QID PRN 07/03/17 07/03/17 History Ibuprofen [Motrin] 600 mg PO Q6H PRN 07/03/17 07/03/17 History Loperamide [Imodium] 2 mg PO QID PRN 07/03/17 07/03/17 History Ondansetron HCl [Zofran] 8 mg PO Q6H PRN 07/03/17 07/03/17 History Trimethobenzamide HCl [Tigan] 300 mg PO Q6H PRN 07/03/17 07/03/17 History busPIRone HCl [Buspar] 5 mg PO TID 07/03/17 07/03/17 History traZODone HCL 50 - 150 mg PO HS 07/03/17 07/03/17 History Allergies Allergy/AdvReac Type Severity Reaction Status Date / Time codeine Allergy Rash/Hives Verified 07/03/17 07:41 Physical Exam Vitals: Vital Signs Temp Pulse Resp BP Pulse Ox 07/03/17 11:26 98.2 F 82 18 125/61 97 07/03/17 08:30 70 18 140/88 95 07/03/17 05:49 73 20 126/58 99 07/03/17 04:27 97.9 F 71 20 137/77 97 Intake and Output 07/02/17 07/03/17 07/03/17 22:59 06:59 14:59 Intake Total 240 Balance 240 Intake: Oral 240 Other: Weight 95.254 kg PHYSICAL EXAMINATION: GENERAL: The patient is alert and oriented x3, not in any acute distress. Well developed, well nourished. HEENT: Pupils are round and equally reacting to light. EOMI. No scleral icterus. No conjunctival pallor. Normocephalic, atraumatic. No pharyngeal erythema. No thyromegaly. CARDIOVASCULAR: S1 and S2 present. No murmurs, rubs, or gallops. PULMONARY: Chest is clear to auscultation, no wheezing or crackles. Patient does have reproducible chest pain ABDOMEN: Soft, nontender, nondistended, normoactive bowel sounds. No palpable organomegaly. MUSCULOSKELETAL: No joint swelling or deformity. EXTREMITIES: No cyanosis, clubbing, or pedal edema. NEUROLOGICAL: Gross neurological examination did not reveal any focal deficits. SKIN: No rashes. Results CBC & Chem 7: 07/03/17 04:29 07/03/17 04:29 Labs: Abnormal Lab Results - Last 24 Hours (Table) 07/03/17 07/03/17 07/03/17 Range/Units 04:29 04:29 11:00 INR 1.2 H (<1.2) Troponin I 0.092 H* 0.085 H* (0.000-0.034) ng/mL Thrombosis Risk Factor Assmnt - Choose All That Apply Any of the Below Risk Factors Present?: Yes Each Factor Represents 1 point: Obesity (BMI >25) Other Risk Factors: No Other congenital or acquired thrombophilia - If yes, enter type in comment: No Thrombosis Risk Factor Assessment Total Risk Factor Score: 1 Thrombosis Risk Factor Assessment Level: Low Risk Assessment and Plan Plan: -Chest pain rule out acute coronary syndromes, patient will undergo stress test tomorrow patient is very minimal elevated troponins patient's chest pain is atypical musculoskeletal in nature. -History of hepatitis C: Patient will need to follow gastric neurologist as an outpatient for treatment of hep C. -History of multiple IV drug use: Patient is presently in [facility] -Depression -Nicotine use: Counseling was provided patient will be on nicotine patch
[2017-07-03] MEDS: busPIRone HCl 5 MG TAB PO SCH ×2 (13:59→20:14)
[2017-07-03] MEDS: NICOTINE 21MG/24HR PATCH TRANSDERM SCH (13:59)
[2017-07-03] MEDS: clonazePAM 1 MG TAB PO PRN ×2 (14:07→21:14)
[2017-07-03] MEDS ORDERED: HYOSCYAMINE SULFATE 0.125 MG TAB PO PRN (14:29)
[2017-07-03] MEDS ORDERED: CALCIUM CARB-VIT D 500MG-200UN 1 EACH TAB PO PRN (14:29)
[2017-07-03] MEDS ORDERED: ONDANSETRON 4 MG TAB PO PRN (14:29)
[2017-07-03] MEDS ORDERED: diphenhydrAMINE 25 MG CAP PO PRN (14:29)
[2017-07-03] MEDS ORDERED: LOPERAMIDE 2 MG CAP PO PRN (14:29)
[2017-07-03] MEDS: METHADONE 10 MG TAB PO SCH (15:35)
[2017-07-03 17:11] LABS: Creatine Kinase MB 0.9 ng/mL (0.0-2.4)
[2017-07-03] MEDS: buPROPion SR 150 MG TABLET.ER PO SCH (20:13)
[2017-07-03] MEDS ORDERED: traZODone HCL 50 MG TAB PO SCH (21:00)
[2017-07-04 01:31] LABS: Cholesterol 168 mg/dL (<200); HDL Cholesterol 65 mg/dL (40-60); LDL Cholesterol,Calculated 95 mg/dL (0-99); Triglycerides 38 mg/dL (<150)
[2017-07-04] MEDS ORDERED: CITALOPRAM HYDROBROMIDE 20 MG TAB PO SCH (06:00)
[2017-07-04] MEDS: clonazePAM 1 MG TAB PO PRN ×2 (07:03→14:55)
[2017-07-04] MEDS ORDERED: ASPIRIN 325 MG TAB PO SCH (09:00)
[2017-07-04] MEDS ORDERED: METHADONE 10 MG TAB PO SCH (09:00)
[2017-07-04] MEDS: METHADONE 10 MG TAB PO SCH (09:28)
[2017-07-04] MEDS: busPIRone HCl 5 MG TAB PO SCH ×2 (09:28→09:33)
[2017-07-04] MEDS: NICOTINE 21MG/24HR PATCH TRANSDERM SCH (09:28)
[2017-07-04] MEDS: buPROPion SR 150 MG TABLET.ER PO SCH (09:28)
[2017-07-04 11:00] VITALS: RESP 16
--- NOTE | 2017-07-04 11:34 | P.PN ---
Subjective Progress Note Date: 07/04/17 Principal diagnosis: chest pain this is a 27-year-old gentleman with history of nicotine dependence along with drug abuse, he is currently at [facility] for rehab. Patient was recently admitted to the hospital with symptoms of chest discomfort and was found to have mildly abnormal troponins with a normal d-dimer. He was advised at that time to undergo cardiac catheterization which she refused, subsequent to that a stress test was ordered which the patient also refused. He presents again to the hospital on this occasion with symptoms of chest discomfort.Troponins 0.09, 0.08, 0.07. Patient is scheduled today to undergo a stress echocardiographic study.he was seen and examined this morning, denied any chest discomfort. Objective - Vital Signs Vital signs: Vital Signs Temp 97.6 F 07/04/17 08:00 Pulse 71 07/04/17 08:00 Resp 16 07/04/17 08:00 BP 99/55 07/04/17 08:00 Pulse Ox 97 07/04/17 08:00 Intake & Output 07/03/17 07/04/17 07/04/17 18:59 06:59 18:59 Intake Total 460 480 Balance 460 480 Weight 91.1 kg Intake: Oral 460 480 Other: # Voids 1 3 1 - Exam PHYSICAL EXAMINATION: HEENT: [Head is atraumatic, normocephalic. Pupils equal, round. Neck is supple. There is no elevated jugular venous pressure.] HEART EXAMINATION: [Heart S1, S2 normal. No murmur or gallop heard.] CHEST EXAMINATION:[ Lungs are clear to auscultation and precussion. No chest wall tenderness is noted on palpation or with deep breathing.] ABDOMEN: [ Soft, nontender. Bowel sounds are heard. No organomegaly noted]. EXTREMITIES:[ 2+ peripheral pulses with no evidence of peripheral edema and no calf tenderness noted]. NEUROLOGIC [patient is awake, alert and oriented -3.] . - Labs CBC & Chem 7: 07/03/17 04:29 07/03/17 04:29 Labs: Abnormal Lab Results - Last 24 Hours (Table) 07/03/17 07/03/17 07/03/17 Range/Units 04:29 11:00 16:10 Troponin I 0.085 H* 0.075 H* (0.000-0.034) ng/mL HDL Cholesterol 65 H (40-60) mg/dL Assessment and Plan Plan: Assessment and plan #1 atypical chest discomfort with mildly abnormal troponins #2 drug abuse in the form of cocaine and methamphetamines #3 nicotine dependence Plan Patient will undergo a stress echocardiographic study today. If negative, from cardiology's perspective patient may be able to be discharged back to rehab. DNP note has been reviewed, I agree with a documented findings and plan of care. Patient was seen and examined.
[2017-07-04 12:08] LABS: Troponin I 0.075 ng/mL (0.000-0.034)
--- NOTE | 2017-07-04 12:42 | ECHOS ---
STRESS ECHOCARDIOGRAM DATE OF SERVICE: 07/04/2017 INDICATIONS: Chest pain. MEDICATIONS: BASELINE HEART RATE: 66 BASELINE BLOOD PRESSURE: 125/80 MAXIMUM HEART RATE: 185 MAXIMUM BLOOD PRESSURE: 189/65 85% MPHR: 164 100% MPHR: 193 METS: 14.1 MAXIMUM STAGE REACHED: IV TOTAL EXERCISE TIME: 13 minutes. CLINICAL INFORMATION: Patient was exercised for a total period of 13 minutes. The peak heart rate of 185 was achieved. Maximum blood pressure 89/65 mmHg was noted. The resting EKG shows normal sinus rhythm with normal LA interval and QRS duration and normal ST-T waves. No ST- segment depression suggestive of ischemia is noted. The baseline echocardiographic images reveals normal left ventricular chamber size with normal left ventricular systolic function. In the immediate postexercise period, normal increase in the wall thickness and contractility is noted. FINAL IMPRESSION: 1. This stress echocardiographic study is negative for stress-induced ischemia. 2. The EKG portion of the stress test is not suggestive of ischemia. 3. Patient's exercise tolerance is excellent. MMODL / IJN: [id number] /
--- NOTE | 2017-07-04 14:39 | P.DS ---
Providers Date of admission: 07/03/17 04:51 Attending physician: Jean Salamanca Consults: 07/03/17 04:51 Consult Physician Urgent Consulting Provider: Javed Coleman Consult Reason/Comments: cp Do you want consulting provider notified?: Yes Primary care physician: Physician Nonstaff Hospital Course: He should was admitted chest pain rule out acute coronary syndromes and patient underwent stress test which was negative patient will be discharged today patient has musculoskeletal chest pain. PHYSICAL EXAMINATION: GENERAL: The patient is alert and oriented x3, not in any acute distress. Well developed, well nourished. HEENT: Pupils are round and equally reacting to light. EOMI. No scleral icterus. No conjunctival pallor. Normocephalic, atraumatic. No pharyngeal erythema. No thyromegaly. CARDIOVASCULAR: S1 and S2 present. No murmurs, rubs, or gallops. PULMONARY: Chest is clear to auscultation, no wheezing or crackles. ABDOMEN: Soft, nontender, nondistended, normoactive bowel sounds. No palpable organomegaly. MUSCULOSKELETAL: No joint swelling or deformity. EXTREMITIES: No cyanosis, clubbing, or pedal edema. NEUROLOGICAL: Gross neurological examination did not reveal any focal deficits. SKIN: No rashes. Assessment and Plan Plan: -Chest pain rule out acute coronary syndromes, stress test is negative tomorrow patient is very minimal elevated troponins patient's chest pain is atypical musculoskeletal in nature. -History of hepatitis C: Patient will need to follow gastric neurologist as an outpatient for treatment of hep C. -History of multiple IV drug use: Patient is presently in [place] -Depression -Nicotine use: Counseling was provided patient will be on nicotine patch Patient Condition at Discharge: Undetermined Plan - Discharge Summary Discharge Rx Participant: No New Discharge Prescriptions: Continue Nicotine 21Mg/24Hr Patch [Habitrol] 1 patch TRANSDERM DAILY Citalopram Hydrobromide [CeleXA] 40 mg PO DAILY@0600 buPROPion HCL [Wellbutrin SR] 150 mg PO BID traZODone HCL 50 - 150 mg PO HS Chlorpheniramine Maleate [Chlor-Trimeton] 4 mg PO Q4H PRN MDD 4 DOSES PRN Reason: ALLERGIES Ibuprofen [Motrin] 600 mg PO Q6H PRN PRN Reason: Pain Acetaminophen [Tylenol 8 Hour] 650 mg PO Q4H PRN PRN Reason: Pain Or Fever > 100.5 Hyoscyamine Sulfate [Levsin-Sl] 0.125 mg SUBLINGUAL QID PRN PRN Reason: STOMACH CRAMPS Loperamide [Imodium] 2 mg PO QID PRN PRN Reason: Diarrhea Trimethobenzamide HCl [Tigan] 300 mg PO Q6H PRN PRN Reason: Nausea And Vomiting busPIRone HCl [Buspar] 5 mg PO TID Ondansetron HCl [Zofran] 8 mg PO Q6H PRN PRN Reason: Nausea And Vomiting Calcium/Magnesium 1000mg/500mg 1 tab PO TID PRN PRN Reason: Muscle CRAMPS Discontinued Sulfamethox-Tmp 800-160Mg [Bactrim DS 800-160 mg] 1 tab PO Q12HR Discharge Medication List Citalopram Hydrobromide [CeleXA] 40 mg PO DAILY@0600 06/26/17 [History] Nicotine 21Mg/24Hr Patch [Habitrol] 1 patch TRANSDERM DAILY 06/26/17 [History] buPROPion HCL [Wellbutrin SR] 150 mg PO BID 06/26/17 [History] Acetaminophen [Tylenol 8 Hour] 650 mg PO Q4H PRN 07/03/17 [History] Calcium/Magnesium 1000mg/500mg 1 tab PO TID PRN 07/03/17 [History] Chlorpheniramine Maleate [Chlor-Trimeton] 4 mg PO Q4H PRN MDD 4 DOSES 07/03/17 [ History] Hyoscyamine Sulfate [Levsin-Sl] 0.125 mg SUBLINGUAL QID PRN 07/03/17 [History] Ibuprofen [Motrin] 600 mg PO Q6H PRN 07/03/17 [History] Loperamide [Imodium] 2 mg PO QID PRN 07/03/17 [History] Ondansetron HCl [Zofran] 8 mg PO Q6H PRN 07/03/17 [History] Trimethobenzamide HCl [Tigan] 300 mg PO Q6H PRN 07/03/17 [History] busPIRone HCl [Buspar] 5 mg PO TID 07/03/17 [History] traZODone HCL 50 - 150 mg PO HS 07/03/17 [History] Follow up Appointment(s)/Referral(s): Nay Hoskins MD [STAFF PHYSICIAN] - 6 Weeks Nonstaff,Physician [Primary Care Provider] - 3 Days Discharge Disposition: HOME SELF-CARE
[2017-07-04 14:53] VITALS: BP 101/60; PULSE 69; TEMP 97.5
== END 2017-07-04 15:30 | disposition home or self-care (01) ==
LOC: EC 04:26 → 6SEL 04:51
PROVIDERS: ADMIT Hospitalist; ATTEND Hospitalist
DX: R07.89 Other chest pain (principal); R79.89 Other specified abnormal findings of blood chemistry; B19.20 Unspecified viral hepatitis C without hepatic coma; F17.200 Nicotine dependence, unspecified, uncomplicated; F32.9 Major depressive disorder, single episode, unspecified; F14.10 Cocaine abuse, uncomplicated; F15.20 Other stimulant dependence, uncomplicated; F90.9 Attention-deficit hyperactivity disorder, unspecified type; F41.9 Anxiety disorder, unspecified; E66.9 Obesity, unspecified; Z68.25 Body mass index [BMI] 25.0-25.9, adult; Z79.899 Other long term (current) drug therapy; Z88.5 Allergy status to narcotic agent; Z82.49 Family history of ischemic heart disease and other diseases of the circulatory system
CPT/HCPCS: 36415; 93005; 93017; 93350; 80061; 80053; 82550; 82553; 83690; 83735; 84484; 85025; 85610; 85730; 71046; 99284; 96374; 96376; G0378 ×2; S4990 ×2; J2060; S0106 ×2; S0109 ×2